=== PATIENT | female | born 1995 | race Caucasian/White ===

== ENCOUNTER 2019-06-01 20:11 | Observation (INO) ==
[2019-06-01] MEDS ORDERED: 0.9 % Sodium Chloride 1,000 ML IVC STA (20:49)
[2019-06-01] MEDS ORDERED: Isovue-370 500 ML BOTTLE IVP ONE (20:50)
[2019-06-01] MEDS ORDERED: cefTRIAXone 1,000 MG in Water for inj. (sterile) 10 ML IVP ONE (21:05)
--- NOTE | 2019-06-01 21:09 | Emergency Department Note ---
Disposition Clinical Impression: Pyelonephritis Disposition: Admitted As Inpatient Condition: Good Referrals: Sirena House MD [Primary Care Provider] - Forms: ED Satisfaction Letter Time of Disposition: 00:54 General Adult HPI - General Chief complaint: ED Urogenital-Female Stated complaint: Poss. Kidney Infection, HX Time Seen by Provider: 06/01/19 20:45 Source: patient Limitations: no limitations Nursing Notes Reviewed: Yes Vital Signs Reviewed: Yes - History of Present Illness HPI Narrative: 23-year-old female who presents the emergency department with complaints of left sided abdominal pain, fever since yesterday. The patient states this feels similar to her previous episode of pyelonephritis. Patient states that she has no dysuria, hematuria, vomiting but this is exactly similar to her last episode. The patient otherwise notes she has had a fever at home but did not take her temperature. Her pain is predominantly in the left flank, radiating into her left abdomen. She has no history of kidney stents. She otherwise is currently on her menstrual cycle and denies any vaginal discharge, cough, shortness of breath, chest pain, headache or neck pain. Pain Scale: 10 - Related Data Home Medications Medication Instructions Recorded Confirmed Amitriptyline [Elavil] 25 mg PO HS PRN 06/01/19 06/01/19 BuPROPion XL (24 HR) [Wellbutrin 75 mg PO DAILY 06/01/19 06/01/19 XL] Norgestimate-Ethinyl Estradiol 1 each PO DAILY 06/01/19 06/01/19 [Sprintec 28 Day Tablet] Venlafaxine XR (24 HR) [Effexor XR] 75 mg PO DAILY 06/01/19 06/01/19 Venlafaxine XR (24 HR) [Effexor XR] 150 mg PO DAILY 06/01/19 06/01/19 Allergies Allergy/AdvReac Type Severity Reaction Status Date / Time No Known Allergies Allergy Verified 04/08/19 17:15 Review of Systems: ROS per history of present illness, all other systems reviewed and negative or normal. All systems ED: reviewed and negative except as stated. Review of Systems: As Per HPI Past Medical History - Past Medical History Medical history: Reports: asthma Psychiatric history: Reports: depression - Social History Smoking Status: Never smoker Alcohol use: Reports: none Drug use: Reports: none Physical Exam General: Conversant. No apparent distress. Follow commands. Appears stated age. Neck: No JVD. Trachea midline. Neck supple. Eyes: PERRL. No scleral icterus. HENT: Normocephalic and atraumatic. Moist mucus membranes. Cardiovascular: Tachycardic. Regular rhythm. Normal S1 and S2. No murmurs appreciated. Normal capillary refill. Pulmonary: Normal and equal breath sounds bilaterally, anteriorly and posteriorly. No wheezes, rales, or rhonchi. Not in respiratory distress. Speaks in full sentences. Abdomen: Soft, nondistended. There is mild tenderness in her left flank and left upper quadrant. No bruits or masses. No guarding. No rigidity. Neuro: Alert and oriented x3. No slurred speech. No focal deficits noted. Skin: No rashes noted on visualized skin. Febrile Musculoskeletal: No bony abnormalities visualized. Moves all extremities. Psych: Normal mood. Pleasant. Makes appropriate eye contact. - General Limitations: no limitations General appearance: alert, in no apparent distress Course Vital Signs Temperature 101.6 F H 06/01/19 20:14 Pulse Rate 128 06/01/19 20:14 Respiratory Rate 20 06/01/19 20:14 Blood Pressure 118/75 06/01/19 20:14 O2 Sat by Pulse Oximetry 97 06/01/19 20:14 Temperature 101.6 F H 06/01/19 20:14 Pulse Rate 20 06/02/19 01:03 Respiratory Rate 16 06/02/19 01:03 Blood Pressure 94/61 06/02/19 01:03 O2 Sat by Pulse Oximetry 100 06/02/19 01:03 Oxygen Delivery Oxygen Delivery Room Air Medical Decision Making - [facility] Narrative Medical decision making narrative: 23-year-old female who presents the emergency department with complaints of left-sided flank and abdominal pain, similar to previous episode of pyelonephritis. On arrival patient is febrile up to 101.6, tachycardia to 128. Blood pressure stable and she is not hypoxic. The patient does trigger sepsis alert therefore sepsis protocol was initiated, blood cultures were drawn, given suspected source of urinary tract infection she was started on Rocephin after review of previous sensitivities. Laboratory evaluation shows leukocytosis up to 13.4, no anemia. Electrolytes show mild hyponatremia and hypokalemia. Troponin less than 0.031. CT abdomen/pelvis shows evidence of left-sided pyelonephritis. Patient was given 1 L fluid bolus and second was ordered and she is noted to be hypotensive. She has concerns she has worsening of her fever. We will re-dose Tylenol. Repeat fluid bolus given and she is fluid responsive. Discussed case with on-call hospitalist Dr. Self who agrees with plan for admission and accepts the patient to the inpatient service. Patient agrees with and understands course of treatment plan including plan for admission. All questions answered. - Medical Records Medical records reviewed: Yes I reviewed the patient's medical records. - Lab Data Lab results reviewed: Yes I reviewed the patient's lab results. Result diagrams: 06/01/19 21:07 06/01/19 21:07 Lab Results 06/01/19 06/01/19 06/01/19 Range/Units 21:07 21:07 21:07 WBC 13.4 H (4.3-11.1) K/mcL RBC 4.23 (3.82-4.97) M/mcL Hgb 12.4 (11.5-15.4) g/dL Hct 37.9 (35.3-44.9) % MCV 89.6 (83.0-100.0) fL MCH 29.3 (28.0-33.3) pg MCHC 32.7 (31.6-35.5) g/dL RDW 12.9 (11.5-14.5) % Plt Count 256 (140-400) K/mcL MPV 11.0 (9.4-12.4) fL Immature Gran % 0.3 (0-4) % Seg Neutrophils % 75.4 % Lymphocytes % 13.8 % Monocytes % 9.7 % Eosinophils % 0.4 % Basophils % 0.4 % Neutrophils # 10.1 H (1.6-8.9) K/mcL Lymphocytes # 1.9 (0.6-4.6) K/mcL Monocytes # 1.3 (0.0-1.3) K/mcL Eosinophils # 0.1 (0.0-0.6) K/mcL Basophils # 0.1 (0.0-0.2) K/mcL Platelet Estimate Normal (Normal) PT (9.4-12.1) Seconds INR APTT (26.0-36.0) Seconds Sodium 133 L (136-145) mEq/L Potassium 3.2 L (3.5-5.1) mEq/L Chloride 99 (98-107) mEq/L Carbon Dioxide 24 (23-29) mEq/L BUN 7 (6-20) mg/dL Creatinine 0.84 (0.60-1.20) mg/dL Est GFR ( Amer) > 60 (> 60) Est GFR (Non-Af Amer) > 60 (> 60) BUN/Creatinine Ratio 8 (6-26) Glucose 106 H (70-105) mg/dL Calculated Osmolality 274 L (280-300) Lactic Acid 1.5 (0.5-2.2) mmol/L Calcium 9.7 (8.6-10.3) mg/dL Phosphorus (2.7-4.5) mg/dL Magnesium (1.6-2.6) mg/dL Total Bilirubin 0.4 (0.3-1.0) mg/dL Direct Bilirubin 0.1 (0.0-0.2) mg/dL Indirect Bilirubin 0.3 (0.0-1.2) mg/dL AST 13 (13-39) Units/L ALT 7 (7-52) Units/L Alkaline Phosphatase 52 (34-104) Units/L Troponin I < 0.03 (< 0.04) ng/mL Serum Total Protein 8.1 (6.4-8.9) g/dL Albumin 4.6 (3.5-5.7) g/dL Globulin 3.5 (2.4-3.5) g/dL Albumin/Globulin Ratio 1.3 (1.1-2.2) Serum , Qual (Negative) Urine Color (Yellow) Urine Clarity (Clear) Urine pH (5.0-8.0) pH Units Ur Specific [place] (1.010-1.025) Urine Protein (Neg-Trace) mg/dL Urine Glucose (UA) (Normal) mg/dL Urine Ketones (Negative) mg/dL Urine Blood (Negative) Urine Nitrite (Negative) Urine Bilirubin (Negative) Urine Urobilinogen (Normal) mg/dL Ur Leukocyte Esterase (Negative) Urine Microscopic RBC (0-3) per hpf Urine Microscopic WBC (0-3) per hpf Ur Squamous Epith Cells (None-Few) per lpf Urine Bacteria (None-Few) per hpf Hyaline Casts (None-Few) per lpf Ur Culture Indicated? (NO) Urine Test (Negative) 06/01/19 06/01/19 06/01/19 Range/Units 21:07 21:07 21:07 WBC (4.3-11.1) K/mcL RBC (3.82-4.97) M/mcL Hgb (11.5-15.4) g/dL Hct (35.3-44.9) % MCV (83.0-100.0) fL MCH (28.0-33.3) pg MCHC (31.6-35.5) g/dL RDW (11.5-14.5) % Plt Count (140-400) K/mcL MPV (9.4-12.4) fL Immature Gran % (0-4) % Seg Neutrophils % % Lymphocytes % % Monocytes % % Eosinophils % % Basophils % % Neutrophils # (1.6-8.9) K/mcL Lymphocytes # (0.6-4.6) K/mcL Monocytes # (0.0-1.3) K/mcL Eosinophils # (0.0-0.6) K/mcL Basophils # (0.0-0.2) K/mcL Platelet Estimate (Normal) PT 13.1 H (9.4-12.1) Seconds INR 1.2 APTT 26.4 (26.0-36.0) Seconds Sodium (136-145) mEq/L Potassium (3.5-5.1) mEq/L Chloride (98-107) mEq/L Carbon Dioxide (23-29) mEq/L BUN (6-20) mg/dL Creatinine (0.60-1.20) mg/dL Est GFR ( Amer) (> 60) Est GFR (Non-Af Amer) (> 60) BUN/Creatinine Ratio (6-26) Glucose (70-105) mg/dL Calculated Osmolality (280-300) Lactic Acid (0.5-2.2) mmol/L Calcium (8.6-10.3) mg/dL Phosphorus 3.0 (2.7-4.5) mg/dL Magnesium 1.6 (1.6-2.6) mg/dL Total Bilirubin (0.3-1.0) mg/dL Direct Bilirubin (0.0-0.2) mg/dL Indirect Bilirubin (0.0-1.2) mg/dL AST (13-39) Units/L ALT (7-52) Units/L Alkaline Phosphatase (34-104) Units/L Troponin I (< 0.04) ng/mL Serum Total Protein (6.4-8.9) g/dL Albumin (3.5-5.7) g/dL Globulin (2.4-3.5) g/dL Albumin/Globulin Ratio (1.1-2.2) Serum , Qual Negative (Negative) Urine Color (Yellow) Urine Clarity (Clear) Urine pH (5.0-8.0) pH Units Ur Specific [place] (1.010-1.025) Urine Protein (Neg-Trace) mg/dL Urine Glucose (UA) (Normal) mg/dL Urine Ketones (Negative) mg/dL Urine Blood (Negative) Urine Nitrite (Negative) Urine Bilirubin (Negative) Urine Urobilinogen (Normal) mg/dL Ur Leukocyte Esterase (Negative) Urine Microscopic RBC (0-3) per hpf Urine Microscopic WBC (0-3) per hpf Ur Squamous Epith Cells (None-Few) per lpf Urine Bacteria (None-Few) per hpf Hyaline Casts (None-Few) per lpf Ur Culture Indicated? (NO) Urine Test (Negative) 06/01/19 06/01/19 Range/Units 22:20 22:20 WBC (4.3-11.1) K/mcL RBC (3.82-4.97) M/mcL Hgb (11.5-15.4) g/dL Hct (35.3-44.9) % MCV (83.0-100.0) fL MCH (28.0-33.3) pg MCHC (31.6-35.5) g/dL RDW (11.5-14.5) % Plt Count (140-400) K/mcL MPV (9.4-12.4) fL Immature Gran % (0-4) % Seg Neutrophils % % Lymphocytes % % Monocytes % % Eosinophils % % Basophils % % Neutrophils # (1.6-8.9) K/mcL Lymphocytes # (0.6-4.6) K/mcL Monocytes # (0.0-1.3) K/mcL Eosinophils # (0.0-0.6) K/mcL Basophils # (0.0-0.2) K/mcL Platelet Estimate (Normal) PT (9.4-12.1) Seconds INR APTT (26.0-36.0) Seconds Sodium (136-145) mEq/L Potassium (3.5-5.1) mEq/L Chloride (98-107) mEq/L Carbon Dioxide (23-29) mEq/L BUN (6-20) mg/dL Creatinine (0.60-1.20) mg/dL Est GFR ( Amer) (> 60) Est GFR (Non-Af Amer) (> 60) BUN/Creatinine Ratio (6-26) Glucose (70-105) mg/dL Calculated Osmolality (280-300) Lactic Acid (0.5-2.2) mmol/L Calcium (8.6-10.3) mg/dL Phosphorus (2.7-4.5) mg/dL Magnesium (1.6-2.6) mg/dL Total Bilirubin (0.3-1.0) mg/dL Direct Bilirubin (0.0-0.2) mg/dL Indirect Bilirubin (0.0-1.2) mg/dL AST (13-39) Units/L ALT (7-52) Units/L Alkaline Phosphatase (34-104) Units/L Troponin I (< 0.04) ng/mL Serum Total Protein (6.4-8.9) g/dL Albumin (3.5-5.7) g/dL Globulin (2.4-3.5) g/dL Albumin/Globulin Ratio (1.1-2.2) Serum , Qual (Negative) Urine Color Yellow (Yellow) Urine Clarity Cloudy A (Clear) Urine pH 6.5 (5.0-8.0) pH Units Ur Specific [place] 1.009 L (1.010-1.025) Urine Protein Trace (Neg-Trace) mg/dL Urine Glucose (UA) Normal (Normal) mg/dL Urine Ketones Negative (Negative) mg/dL Urine Blood Large H (Negative) Urine Nitrite Positive A (Negative) Urine Bilirubin Negative (Negative) Urine Urobilinogen Normal (Normal) mg/dL Ur Leukocyte Esterase Large H (Negative) Urine Microscopic RBC 30-50 H (0-3) per hpf Urine Microscopic WBC TNTC H (0-3) per hpf Ur Squamous Epith Cells Many H (None-Few) per lpf Urine Bacteria Many H (None-Few) per hpf Hyaline Casts Few (None-Few) per lpf Ur Culture Indicated? YES A (NO) Urine Test Negative (Negative) - Radiology Data Radiology results reviewed: Yes I reviewed the patient's radiology results. Abdomen/Pelvis CT 06/01/19 20:50 IMPRESSION: Striated nephrogram on the left hand side, consistent with pyelonephritis given the history of sepsis and flank pain. D/ / Juan M Ortiz MD / Juan M Ortiz MD Interpreting Provider: Juan M Ortiz MD
[2019-06-01] MEDS: 0.9 % Sodium Chloride 1,000 ML IVC SCH (21:19)
[2019-06-01 21:21] LABS: Basophils # 0.1 K/mcL (0.0-0.2); Basophils % 0.4 %; Eosinophils # 0.1 K/mcL (0.0-0.6); Eosinophils % 0.4 %; Hematocrit 37.9 % (35.3-44.9); Hemoglobin 12.4 g/dL (11.5-15.4); Immature Granulocytes % 0.3 % (0-4); Lymphocytes # 1.9 K/mcL (0.6-4.6); Lymphocytes % 13.8 %; Mean Corpuscular HGB Conc 32.7 g/dL (31.6-35.5); Mean Corpuscular Hemoglobin 29.3 pg (28.0-33.3); Mean Corpuscular Volume 89.6 fL (83.0-100.0); Monocytes # 1.3 K/mcL (0.0-1.3); Monocytes % 9.7 %; Neutrophils # 10.1 K/mcL (1.6-8.9); Platelet Count 256 K/mcL (140-400); Red Blood Count 4.23 M/mcL (3.82-4.97); Red Cell Distribution Width 12.9 % (11.5-14.5); Segmented Neutrophils % 75.4 %; White Blood Count 13.4 K/mcL (4.3-11.1)
[2019-06-01 21:28] LABS: INR 1.2; Prothrombin Time 13.1 Seconds (9.4-12.1)
[2019-06-01 21:31] LABS: Activated Partial Thrombo Time 26.4 Seconds (26.0-36.0)
[2019-06-01 21:39] LABS: Magnesium 1.6 mg/dL (1.6-2.6)
[2019-06-01 21:46] LABS: Platelet Estimate Normal (Normal)
[2019-06-01 21:47] LABS: Alanine Aminotransferase 7 Units/L (7-52); Albumin 4.6 g/dL (3.5-5.7); Albumin/Globulin Ratio 1.3 (1.1-2.2); Alkaline Phosphatase 52 Units/L (34-104); Aspartate Amino Transferase 13 Units/L (13-39); BUN/Creatinine Ratio 8 (6-26); Bilirubin,Direct 0.1 mg/dL (0.0-0.2); Bilirubin,Indirect 0.3 mg/dL (0.0-1.2); Bilirubin,Total 0.4 mg/dL (0.3-1.0); Blood Urea Nitrogen 7 mg/dL (6-20); Calcium 9.7 mg/dL (8.6-10.3); Carbon Dioxide 24 mEq/L (23-29); Chloride 99 mEq/L (98-107); Globulin 3.5 g/dL (2.4-3.5); Glucose 106 mg/dL (70-105); Osmolality,Calculated 274 (280-300); Potassium 3.2 mEq/L (3.5-5.1); Sodium 133 mEq/L (136-145); Total Protein 8.1 g/dL (6.4-8.9); Troponin I < 0.03 ng/mL (< 0.04); eGFR For African Americans > 60 (> 60); eGFR For Non-African Americans > 60 (> 60)
[2019-06-01 22:29] LABS: Bilirubin,Urine Negative (Negative); Blood,Urine Large (Negative); Clarity,Urine Cloudy (Clear); Color,Urine Yellow (Yellow); Glucose,Urine (UA) Normal (Normal); Ketones,Urine Negative (Negative); Leukocyte Esterase,Urine Large (Negative); Nitrite,Urine Positive (Negative); PH,Urine 6.5 pH Units (5.0-8.0); Protein,Urine Trace mg/dL (Neg-Trace); Specific Gravity,Urine 1.009 (1.010-1.025); Urobilinogen,Urine Normal (Normal)
[2019-06-01 22:31] LABS: Bacteria,Urine Many per hpf (None-Few); Hyaline Casts,Urine Few per lpf (None-Few); Squamous Epithelial Cell,Urine Many per lpf (None-Few); WBC,Urine TNTC per hpf (0-3)
[2019-06-01 22:50] LABS: RBC,Urine 30-50 per hpf (0-3)
[2019-06-02] MEDS: 0.9 % Sodium Chloride 1,000 ML IVC SCH ×3 (00:35→12:05)
[2019-06-02] MEDS ORDERED: Ibuprofen 600 MG TABLET PO ONE (00:37)
[2019-06-02] MEDS ORDERED: Potassium Effervescent 25 MEQ TABLET.EFF PO ONE (00:53)
--- NOTE | 2019-06-02 01:01 | Emergency Department Note ---
Disposition Clinical Impression: Pyelonephritis Disposition: Admitted As Inpatient Condition: Good Referrals: Sirena House MD [Primary Care Provider] - Forms: ED Satisfaction Letter Time of Disposition: 01:01 General Adult HPI - General Chief complaint: ED Urogenital-Female Stated complaint: Poss. Kidney Infection, HX Time Seen by Provider: 06/01/19 20:45 Source: patient Limitations: no limitations - History of Present Illness Pain Scale: 5 - Related Data Home Medications Medication Instructions Recorded Confirmed Amitriptyline [Elavil] 25 mg PO HS PRN 06/01/19 06/01/19 BuPROPion XL (24 HR) [Wellbutrin 75 mg PO DAILY 06/01/19 06/01/19 XL] Norgestimate-Ethinyl Estradiol 1 each PO DAILY 06/01/19 06/01/19 [Sprintec 28 Day Tablet] Venlafaxine XR (24 HR) [Effexor XR] 75 mg PO DAILY 06/01/19 06/01/19 Venlafaxine XR (24 HR) [Effexor XR] 150 mg PO DAILY 06/01/19 06/01/19 Allergies Allergy/AdvReac Type Severity Reaction Status Date / Time No Known Allergies Allergy Verified 04/08/19 17:15 Past Medical History - Past Medical History Medical history: Reports: asthma Psychiatric history: Reports: depression - Social History Smoking Status: Never smoker Alcohol use: Reports: none Drug use: Reports: none Physical Exam - General Limitations: no limitations General appearance: alert, in no apparent distress Course Vital Signs Temperature 101.6 F H 06/01/19 20:14 Pulse Rate 128 06/01/19 20:14 Respiratory Rate 20 06/01/19 20:14 Blood Pressure 118/75 06/01/19 20:14 O2 Sat by Pulse Oximetry 97 06/01/19 20:14 Temperature 101.6 F H 06/01/19 20:14 Pulse Rate 96 06/02/19 00:47 Respiratory Rate 16 06/02/19 00:47 Blood Pressure 98/66 06/02/19 00:47 O2 Sat by Pulse Oximetry 100 06/02/19 00:47 Oxygen Delivery Oxygen Delivery Room Air Medical Decision Making - Lab Data Result diagrams: 06/01/19 21:07 06/01/19 21:07 Lab Results 06/01/19 06/01/19 06/01/19 Range/Units 21:07 21:07 21:07 WBC 13.4 H (4.3-11.1) K/mcL RBC 4.23 (3.82-4.97) M/mcL Hgb 12.4 (11.5-15.4) g/dL Hct 37.9 (35.3-44.9) % MCV 89.6 (83.0-100.0) fL MCH 29.3 (28.0-33.3) pg MCHC 32.7 (31.6-35.5) g/dL RDW 12.9 (11.5-14.5) % Plt Count 256 (140-400) K/mcL MPV 11.0 (9.4-12.4) fL Immature Gran % 0.3 (0-4) % Seg Neutrophils % 75.4 % Lymphocytes % 13.8 % Monocytes % 9.7 % Eosinophils % 0.4 % Basophils % 0.4 % Neutrophils # 10.1 H (1.6-8.9) K/mcL Lymphocytes # 1.9 (0.6-4.6) K/mcL Monocytes # 1.3 (0.0-1.3) K/mcL Eosinophils # 0.1 (0.0-0.6) K/mcL Basophils # 0.1 (0.0-0.2) K/mcL Platelet Estimate Normal (Normal) PT (9.4-12.1) Seconds INR APTT (26.0-36.0) Seconds Sodium 133 L (136-145) mEq/L Potassium 3.2 L (3.5-5.1) mEq/L Chloride 99 (98-107) mEq/L Carbon Dioxide 24 (23-29) mEq/L BUN 7 (6-20) mg/dL Creatinine 0.84 (0.60-1.20) mg/dL Est GFR ( Amer) > 60 (> 60) Est GFR (Non-Af Amer) > 60 (> 60) BUN/Creatinine Ratio 8 (6-26) Glucose 106 H (70-105) mg/dL Calculated Osmolality 274 L (280-300) Lactic Acid 1.5 (0.5-2.2) mmol/L Calcium 9.7 (8.6-10.3) mg/dL Phosphorus (2.7-4.5) mg/dL Magnesium (1.6-2.6) mg/dL Total Bilirubin 0.4 (0.3-1.0) mg/dL Direct Bilirubin 0.1 (0.0-0.2) mg/dL Indirect Bilirubin 0.3 (0.0-1.2) mg/dL AST 13 (13-39) Units/L ALT 7 (7-52) Units/L Alkaline Phosphatase 52 (34-104) Units/L Troponin I < 0.03 (< 0.04) ng/mL Serum Total Protein 8.1 (6.4-8.9) g/dL Albumin 4.6 (3.5-5.7) g/dL Globulin 3.5 (2.4-3.5) g/dL Albumin/Globulin Ratio 1.3 (1.1-2.2) Serum , Qual (Negative) Urine Color (Yellow) Urine Clarity (Clear) Urine pH (5.0-8.0) pH Units Ur Specific [place] (1.010-1.025) Urine Protein (Neg-Trace) mg/dL Urine Glucose (UA) (Normal) mg/dL Urine Ketones (Negative) mg/dL Urine Blood (Negative) Urine Nitrite (Negative) Urine Bilirubin (Negative) Urine Urobilinogen (Normal) mg/dL Ur Leukocyte Esterase (Negative) Urine Microscopic RBC (0-3) per hpf Urine Microscopic WBC (0-3) per hpf Ur Squamous Epith Cells (None-Few) per lpf Urine Bacteria (None-Few) per hpf Hyaline Casts (None-Few) per lpf Ur Culture Indicated? (NO) Urine Test (Negative) 06/01/19 06/01/19 06/01/19 Range/Units 21:07 21:07 21:07 WBC (4.3-11.1) K/mcL RBC (3.82-4.97) M/mcL Hgb (11.5-15.4) g/dL Hct (35.3-44.9) % MCV (83.0-100.0) fL MCH (28.0-33.3) pg MCHC (31.6-35.5) g/dL RDW (11.5-14.5) % Plt Count (140-400) K/mcL MPV (9.4-12.4) fL Immature Gran % (0-4) % Seg Neutrophils % % Lymphocytes % % Monocytes % % Eosinophils % % Basophils % % Neutrophils # (1.6-8.9) K/mcL Lymphocytes # (0.6-4.6) K/mcL Monocytes # (0.0-1.3) K/mcL Eosinophils # (0.0-0.6) K/mcL Basophils # (0.0-0.2) K/mcL Platelet Estimate (Normal) PT 13.1 H (9.4-12.1) Seconds INR 1.2 APTT 26.4 (26.0-36.0) Seconds Sodium (136-145) mEq/L Potassium (3.5-5.1) mEq/L Chloride (98-107) mEq/L Carbon Dioxide (23-29) mEq/L BUN (6-20) mg/dL Creatinine (0.60-1.20) mg/dL Est GFR ( Amer) (> 60) Est GFR (Non-Af Amer) (> 60) BUN/Creatinine Ratio (6-26) Glucose (70-105) mg/dL Calculated Osmolality (280-300) Lactic Acid (0.5-2.2) mmol/L Calcium (8.6-10.3) mg/dL Phosphorus 3.0 (2.7-4.5) mg/dL Magnesium 1.6 (1.6-2.6) mg/dL Total Bilirubin (0.3-1.0) mg/dL Direct Bilirubin (0.0-0.2) mg/dL Indirect Bilirubin (0.0-1.2) mg/dL AST (13-39) Units/L ALT (7-52) Units/L Alkaline Phosphatase (34-104) Units/L Troponin I (< 0.04) ng/mL Serum Total Protein (6.4-8.9) g/dL Albumin (3.5-5.7) g/dL Globulin (2.4-3.5) g/dL Albumin/Globulin Ratio (1.1-2.2) Serum , Qual Negative (Negative) Urine Color (Yellow) Urine Clarity (Clear) Urine pH (5.0-8.0) pH Units Ur Specific [place] (1.010-1.025) Urine Protein (Neg-Trace) mg/dL Urine Glucose (UA) (Normal) mg/dL Urine Ketones (Negative) mg/dL Urine Blood (Negative) Urine Nitrite (Negative) Urine Bilirubin (Negative) Urine Urobilinogen (Normal) mg/dL Ur Leukocyte Esterase (Negative) Urine Microscopic RBC (0-3) per hpf Urine Microscopic WBC (0-3) per hpf Ur Squamous Epith Cells (None-Few) per lpf Urine Bacteria (None-Few) per hpf Hyaline Casts (None-Few) per lpf Ur Culture Indicated? (NO) Urine Test (Negative) 06/01/19 06/01/19 Range/Units 22:20 22:20 WBC (4.3-11.1) K/mcL RBC (3.82-4.97) M/mcL Hgb (11.5-15.4) g/dL Hct (35.3-44.9) % MCV (83.0-100.0) fL MCH (28.0-33.3) pg MCHC (31.6-35.5) g/dL RDW (11.5-14.5) % Plt Count (140-400) K/mcL MPV (9.4-12.4) fL Immature Gran % (0-4) % Seg Neutrophils % % Lymphocytes % % Monocytes % % Eosinophils % % Basophils % % Neutrophils # (1.6-8.9) K/mcL Lymphocytes # (0.6-4.6) K/mcL Monocytes # (0.0-1.3) K/mcL Eosinophils # (0.0-0.6) K/mcL Basophils # (0.0-0.2) K/mcL Platelet Estimate (Normal) PT (9.4-12.1) Seconds INR APTT (26.0-36.0) Seconds Sodium (136-145) mEq/L Potassium (3.5-5.1) mEq/L Chloride (98-107) mEq/L Carbon Dioxide (23-29) mEq/L BUN (6-20) mg/dL Creatinine (0.60-1.20) mg/dL Est GFR ( Amer) (> 60) Est GFR (Non-Af Amer) (> 60) BUN/Creatinine Ratio (6-26) Glucose (70-105) mg/dL Calculated Osmolality (280-300) Lactic Acid (0.5-2.2) mmol/L Calcium (8.6-10.3) mg/dL Phosphorus (2.7-4.5) mg/dL Magnesium (1.6-2.6) mg/dL Total Bilirubin (0.3-1.0) mg/dL Direct Bilirubin (0.0-0.2) mg/dL Indirect Bilirubin (0.0-1.2) mg/dL AST (13-39) Units/L ALT (7-52) Units/L Alkaline Phosphatase (34-104) Units/L Troponin I (< 0.04) ng/mL Serum Total Protein (6.4-8.9) g/dL Albumin (3.5-5.7) g/dL Globulin (2.4-3.5) g/dL Albumin/Globulin Ratio (1.1-2.2) Serum , Qual (Negative) Urine Color Yellow (Yellow) Urine Clarity Cloudy A (Clear) Urine pH 6.5 (5.0-8.0) pH Units Ur Specific [place] 1.009 L (1.010-1.025) Urine Protein Trace (Neg-Trace) mg/dL Urine Glucose (UA) Normal (Normal) mg/dL Urine Ketones Negative (Negative) mg/dL Urine Blood Large H (Negative) Urine Nitrite Positive A (Negative) Urine Bilirubin Negative (Negative) Urine Urobilinogen Normal (Normal) mg/dL Ur Leukocyte Esterase Large H (Negative) Urine Microscopic RBC 30-50 H (0-3) per hpf Urine Microscopic WBC TNTC H (0-3) per hpf Ur Squamous Epith Cells Many H (None-Few) per lpf Urine Bacteria Many H (None-Few) per hpf Hyaline Casts Few (None-Few) per lpf Ur Culture Indicated? YES A (NO) Urine Test Negative (Negative) Attestation Statement - Attestation Attestation: I reviewed the residents documentation and agree with the residents assessment and plan of care. I have personally had face to face time with the patient. (Brief History, Brief Exam, and MDM) I personally supervised and was present for the demarco/critical portions of the following procedures completed by the resident: EKG 23 year old female presents to the Ed with complaints of flank pain and meets SIRS criteria with elevated temp and tachycardia, she is otherwise fluid responsive. Kaynet has recieved rocephin and will recieved 30ml/kg. We have discussed case with medicine and they will accept patinet to the floors once blood pressure has been stabilized. we will sign out to night team to monitor blood pressure and once it has stabilized then admit for the floors.
[2019-06-02] MEDS ORDERED: Naloxone 0.4 MG/ML INJ IVP PRN (02:15)
--- NOTE | 2019-06-02 03:33 | Internal Med History&Physical ---
Date of Encounter: 06/02/19 Time of Encounter: 06:42 Internal Medicine - H&P: HPI Chief complaint: left flank pain History of present illness: Ms. Alarcon is a 23 year old female with past medical history for pyelonephritis who presented to the ER with left flank pain associated with fevers that started 24 hours ago. The patient describes the pain as sharp radiating to her left abdomen. The patient has history of previous episodes of pyelonephritis. Patient was evaluated by the ER staff and CT scan of the abdomen revealed Striated nephrogram on the left hand side, consistent with pyelonephritis given the history of sepsis and flank pain. Blood and urine culture was obtained and patient was started on systemic antibiotic was admitted for further evaluation and management Past Med Surg Social Fam HX - Past Medical History Medical history: asthma Additional medical history: hx of pyelonephritis Psychiatric history: depression - Social History Smoking Status: Never smoker Smokeless Tobacco Status: No Alcohol use: none Drug use: none Internal Medicine - H&P: Meds Amitriptyline [Elavil] 25 mg PO HS PRN 06/01/19 [History] BuPROPion XL (24 HR) [Wellbutrin Xl] 75 mg PO DAILY 06/01/19 [History] Norgestimate-Ethinyl Estradiol [Sprintec 28 Day Tablet] 1 each PO DAILY 06/01/19 [History] Venlafaxine XR (24 HR) [Effexor XR] 75 mg PO DAILY 06/01/19 [History] Venlafaxine XR (24 HR) [Effexor Xr] 150 mg PO DAILY 06/01/19 [History] Ciprofloxacin [Cipro] 500 mg PO BID #10 tablet 06/02/19 [Rx] Allergy/AdvReac Type Severity Reaction Status Date / Time No Known Allergies Allergy Verified 04/08/19 17:15 All Systems PM: A 10-system review of systems was performed and is negative for pertinent findings except as documented above in the HPI. - Constitutional Vitals: Temp Pulse Resp BP Pulse Ox 97.9 F 92 17 90/60 98 06/02/19 02:41 06/02/19 02:41 06/02/19 02:41 06/02/19 02:41 06/02/19 02:41 Exam: General: Ill-appearing and in no acute distress HEENT: No erythema of posterior pharynx. No exudates. Lymphatics: No mandibular or cervical lymphadenopathy Cardiovascular: RRR. No murmurs. No chest wall tenderness. Lungs: Clear to auscelltation bilaterally. Regular chest rise. Abdomen: Mile R flank tenderness. No rebound or gaurding. Nl bowel sounds. Extremities: No edema. 2+ pulses radial and pedal pulses Skin: No rahses, abrasions, or contusions. Nl cap refill. Internal Med - H&P Results - Labs CBC & Chem 7: 06/02/19 04:29 06/02/19 04:29 Labs: Short CBC 06/01/19 Range/Units 21:07 WBC 13.4 H (4.3-11.1) K/mcL Hgb 12.4 (11.5-15.4) g/dL Hct 37.9 (35.3-44.9) % Plt Count 256 (140-400) K/mcL Neutrophils # 10.1 H (1.6-8.9) K/mcL BMP 06/01/19 21:07 Sodium 133 L Potassium 3.2 L Chloride 99 Carbon Dioxide 24 BUN 7 Creatinine 0.84 Glucose 106 H Calcium 9.7 Cardiac Enzymes 06/01/19 Range/Units 21:07 Troponin I < 0.03 (< 0.04) ng/mL Liver Function 06/01/19 Range/Units 21:07 Total Bilirubin 0.4 (0.3-1.0) mg/dL Direct Bilirubin 0.1 (0.0-0.2) mg/dL AST 13 (13-39) Units/L ALT 7 (7-52) Units/L Alkaline Phosphatase 52 (34-104) Units/L Albumin 4.6 (3.5-5.7) g/dL Urine 06/01/19 Range/Units 22:20 Urine Color Yellow (Yellow) Urine Clarity Cloudy A (Clear) Urine pH 6.5 (5.0-8.0) pH Units Ur Specific [place] 1.009 L (1.010-1.025) Urine Protein Trace (Neg-Trace) mg/dL Urine Glucose (UA) Normal (Normal) mg/dL - Impressions ITS Impressions Abdomen/Pelvis CT 06/01/19 20:50 IMPRESSION: Striated nephrogram on the left hand side, consistent with pyelonephritis given the history of sepsis and flank pain. D/ / Juan M Ortiz MD / Juan M Ortiz MD Interpreting Provider: Juan M Ortiz MD - Assessment and Plan (1) Pyelonephritis Status: Acute Assessment and plan: The patient has history of previous episodes of pyelonephritis. Patient was evaluated by the ER staff and CT scan of the abdomen revealed Striated nephrogram on the left hand side, consistent with pyelonephritis. Blood and urine culture was obtained and patient was started on systemic antibiotic was admitted for further evaluation and management. (2) Sepsis Status: Acute Assessment and plan: - BLood Cx - Urin Cx - IV hydration with isotonic saline - ABs Qualifiers: Sepsis type: Escherichia coli Sepsis acute organ dysfunction status: with acute organ dysfunction Severe sepsis acute organ dysfunction type: acute resp iratory failure Acute respiratory failure type: unspecified Severe sepsis shock status: unspecified Qualified Code(s): A41.51 - Sepsis due to Escherichia coli [E. coli]; R65.20 - Severe sepsis without septic shock; J96.00 - Acute respiratory failure, unspecified whether with hypoxia or hypercapnia - Time Spent With Patient Total time spent is greater than 50% in coordination of care (as documented) at patient's floor/unit and/or counseling patient:
[2019-06-02 05:03] LABS: Basophils % 0.2 %; Eosinophils # 0.1 K/mcL (0.0-0.6); Eosinophils % 0.7 %; Hematocrit 30.6 % (35.3-44.9); Immature Granulocytes % 0.4 % (0-4); Lymphocytes # 2.1 K/mcL (0.6-4.6); Lymphocytes % 24.2 %; Mean Corpuscular HGB Conc 32.4 g/dL (31.6-35.5); Mean Corpuscular Hemoglobin 29.6 pg (28.0-33.3); Mean Corpuscular Volume 91.6 fL (83.0-100.0); Mean Platelet Volume 10.5 fL (9.4-12.4); Monocytes # 1.1 K/mcL (0.0-1.3); Monocytes % 12.8 %; Neutrophils # 5.3 K/mcL (1.6-8.9); Platelet Count 229 K/mcL (140-400); Red Blood Count 3.34 M/mcL (3.82-4.97); Red Cell Distribution Width 12.8 % (11.5-14.5); Segmented Neutrophils % 61.7 %; White Blood Count 8.5 K/mcL (4.3-11.1)
[2019-06-02 05:05] LABS: Hemoglobin 9.9 g/dL (11.5-15.4)
[2019-06-02 05:11] LABS: INR 1.2; Prothrombin Time 13.8 Seconds (9.4-12.1)
[2019-06-02 05:14] LABS: Activated Partial Thrombo Time 30.3 Seconds (26.0-36.0)
[2019-06-02 05:22] LABS: Alanine Aminotransferase 4 Units/L (7-52); Albumin 3.3 g/dL (3.5-5.7); Albumin/Globulin Ratio 1.4 (1.1-2.2); Alkaline Phosphatase 37 Units/L (34-104); Aspartate Amino Transferase 9 Units/L (13-39); BUN/Creatinine Ratio 5 (6-26); Bilirubin,Total 0.2 mg/dL (0.3-1.0); Blood Urea Nitrogen 4 mg/dL (6-20); Carbon Dioxide 25 mEq/L (23-29); Chloride 110 mEq/L (98-107); Chol/HDL Ratio 2.3 (0-4.9); Cholesterol 145 mg/dL (< 200); Globulin 2.3 g/dL (2.4-3.5); Glucose 123 mg/dL (70-105); HDL Cholesterol 62 mg/dL (40-59); LDL Cholesterol,Calculated 73 mg/dL (0-99); Magnesium 1.8 mg/dL (1.6-2.6); Osmolality,Calculated 288 (280-300); Phosphorous 2.9 mg/dL (2.7-4.5); Potassium 3.6 mEq/L (3.5-5.1); Sodium 140 mEq/L (136-145); Total Protein 5.6 g/dL (6.4-8.9); Triglycerides 49 mg/dL (< 150); eGFR For African Americans > 60 (> 60); eGFR For Non-African Americans > 60 (> 60)
[2019-06-02] MEDS ORDERED: cefTRIAXone 1,000 MG in Water for inj. (sterile) 10 ML IVPB SCH ×2 (09:00→21:00)
[2019-06-02 10:53] VITALS: BP 95/59
--- NOTE | 2019-06-02 12:58 | Discharge Summary ---
Orders not resulted at time of discharge: Pending orders 06/01/19 21:15 Culture,Blood [BC] Stat 06/01/19 22:20 Culture,Urine [RM] Stat 06/02/19 04:00 Urinalysis reflex Microscopic [URIN] AM 0400 Date of Encounter: 06/02/19 Time of Encounter: 12:56 - Discharge Diagnosis (1) Sepsis Priority: Primary Status: Acute Qualifiers: Sepsis type: Escherichia coli Sepsis acute organ dysfunction status: with acute organ dysfunction Severe sepsis acute organ dysfunction type: acute respiratory failure Acute respiratory failure type: unspecified Severe sepsis shock status: unspecified Qualified Code(s): A41.51 - Sepsis due to Escherichia coli [E. coli]; R65.20 - Severe sepsis without septic shock; J96.00 - Acute respiratory failure, unspecified whether with hypoxia or hypercapnia (2) Pyelonephritis Priority: Secondary Status: Acute Hospital course: Ms. Alarcon is a 23 year old female with history of recent Escherichia coli urinary tract infection 2 months prior treated with Keflex presented with sepsis and found to have pyelonephritis. Patient was treated with IV antibiotics and IV fluids and responded appropriately. Urine culture will be followed up on and will call patient if resistant to ciprofloxacin which she was discharged on. Unclear cause of recurrent infections. CT without urological abnormalities. Discussed urinating after sex and proper cleaning of perineal area. Recommended patient be evaluated by urology if infections become recurrent. May benefit from post-coital antibiotic prophylaxis. - Discharge Medications Prescriptions: New Ciprofloxacin [Cipro] 500 mg PO BID #10 tablet Continued Venlafaxine XR (24 HR) [Effexor XR] 75 mg PO DAILY BuPROPion XL (24 HR) [Wellbutrin Xl] 75 mg PO DAILY Norgestimate-Ethinyl Estradiol [Sprintec 28 Day Tablet] 1 each PO DAILY Amitriptyline [Elavil] 25 mg PO HS PRN PRN Reason: Insomnia Venlafaxine XR (24 HR) [Effexor Xr] 150 mg PO DAILY Home Medications: Amitriptyline [Elavil] 25 mg PO HS PRN 06/01/19 [History] BuPROPion XL (24 HR) [Wellbutrin Xl] 75 mg PO DAILY 06/01/19 [History] Norgestimate-Ethinyl Estradiol [Sprintec 28 Day Tablet] 1 each PO DAILY 06/01/19 [History] Venlafaxine XR (24 HR) [Effexor XR] 75 mg PO DAILY 06/01/19 [History] Venlafaxine XR (24 HR) [Effexor Xr] 150 mg PO DAILY 06/01/19 [History] Ciprofloxacin [Cipro] 500 mg PO BID #10 tablet 06/02/19 [Rx] Allergies/Adverse Reactions: Allergy/AdvReac Type Severity Reaction Status Date / Time No Known Allergies Allergy Verified 04/08/19 17:15 Date of admission: 06/02/19 02:06 Primary care physician: Sirena House - Constitutional Vitals: Temp Pulse Resp BP Pulse Ox 97.9 F 90 16 95/59 99 06/02/19 10:52 06/02/19 10:52 06/02/19 10:52 06/02/19 10:52 06/02/19 10:52 Exam: General: Ill-appearing and in no acute distress HEENT: No erythema of posterior pharynx. No exudates. Lymphatics: No mandibular or cervical lymphadenopathy Cardiovascular: RRR. No murmurs. No chest wall tenderness. Lungs: Clear to auscelltation bilaterally. Regular chest rise. Abdomen: Mile R flank tenderness. No rebound or gaurding. Nl bowel sounds. Extremities: No edema. 2+ pulses radial and pedal pulses Skin: No rahses, abrasions, or contusions. Nl cap refill. Psych: Nl attention. A&Ox3 Neuro: cost control specialist II-XII intact. 5/5 strength. Sensation to light touch and pinprick intact. - Patient Status Disposition: Home, Self-Care Overall status at discharge: patient is back to baseline - Discharge Instructions Follow Up With: Sirena House MD [Primary Care Provider] -
--- NOTE | 2019-06-03 15:15 | Electrocardiograph Report ---
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
== END 2019-06-02 14:26 | disposition home or self-care (01) ==
LOC: 2ANU 20:11 → EMEROOARM 20:11 → 2ANU 06-02 02:15
PROVIDERS: ADMIT Internal Medicine Nephrology; ATTEND Internal Medicine Nephrology